=== PATIENT | male | born 1975 | race Caucasian/White ===

== ENCOUNTER 2016-09-21 19:39 | Emergency (ER) | payer OTHER ==
[~2016-09-21 19:39] MED LIST: NORCO1 TAB PO; UNKNOWN ANTIBIOTIC PO
[2016-09-21 20:45] VITALS: BP 128/90
== END 2016-09-21 20:45 | disposition home or self-care (01) ==
LOC: ED 19:39
DX: J34.0 Abscess, furuncle and carbuncle of nose (principal)

== ENCOUNTER 2016-10-28 17:58 | Emergency (ER) | payer OTHER ==
[~2016-10-28] VITALS: Ht 175.3 cm; Wt 85.7 kg
[2016-10-28 20:31] VITALS: BP 142/86
== END 2016-10-28 20:31 | disposition home or self-care (01) ==
LOC: ED 17:58
DX: J02.9 Acute pharyngitis, unspecified (principal)
CPT/HCPCS: J1885

== ENCOUNTER 2018-05-14 20:16 | Emergency (ER) | payer OTHER ==
[~2018-05-14] VITALS: Ht 180.3 cm; Wt 91.6 kg
[2018-05-14 20:24] VITALS: Ht 180.3 cm; Wt 91.6 kg
[2018-05-14 21:15] LABS: BASOPHIL % 0.2 % (0-2); PLATELET COUNT 359 x10^3mcL (130-400); RED CELL DISTRIBUTION WIDTH 13.7 % (11.5-14.5)
[2018-05-14 21:39] LABS: CALCIUM 8.9 mg/dL (8.5-10.1); CARBON DIOXIDE 29.5 mmol/L (21-32); CHLORIDE SERUM 99 mmol/L (98-107); CREATININE SERUM 1.1 mg/dL (0.7-1.3); GFR1 > 60 mL/min; GLUCOSE SERUM 114 mg/dL (74-106); POTASSIUM SERUM 3.8 mmol/L (3.5-5.1); SODIUM SERUM 137 mmol/L (136-145)
[2018-05-14 21:48] LABS: C REACTIVE PROTEIN 9.2 mg/dL (<=0.9)
[2018-05-14 22:03] LABS: ERYTHROCYTE SED RATE 31 mm/hr (0-15)
[2018-05-15 00:47] VITALS: BP 147/100
== END 2018-05-15 00:47 | disposition short-term general hospital (02) ==
LOC: ED 20:16
PROVIDERS: Specialist
DX: S61.231A Puncture wound without foreign body of left index finger without damage to nail, initial encounter (principal); L03.012 Cellulitis of left finger; Z98.890 Other specified postprocedural states; W34.010A Accidental discharge of airgun, initial encounter; Y93.89 Activity, other specified; Y92.89 Other specified places as the place of occurrence of the external cause; Y99.8 Other external cause status
CPT/HCPCS: 90715; J0696; J1885; J3370; Q0092

== ENCOUNTER 2018-11-10 19:00 | Emergency (ER) | payer BC ==
[~2018-11-10] VITALS: Ht 180.3 cm; Wt 87.5 kg
[2018-11-10 19:03] VITALS: Ht 180.3 cm; Wt 87.5 kg
[2018-11-10 22:56] VITALS: BP 143/90
== END 2018-11-10 22:56 | disposition home or self-care (01) ==
LOC: ED 19:00
DX: J03.90 Acute tonsillitis, unspecified (principal); Z98.890 Other specified postprocedural states
CPT/HCPCS: J0561; J2930